=== PATIENT | male | born 1975 | race Caucasian/White ===

== ENCOUNTER 2017-10-05 00:21 | Emergency (ER) | payer OTHER ==
[2017-10-05] MEDS ORDERED: KETOROLAC TROMETHAMINE 30 MG/1 ML VIAL ONE (03:10)
[2017-10-05 04:46] LABS: URINE APPEARANCE SL CLOUDY; URINE BILIRUBIN NEGATIVE (<2.0 mg/dL); URINE COLOR YELLOW; URINE GLUCOSE (UA) NEGATIVE (NEGATIVE)
[2017-10-05 04:47] LABS: URINE BLOOD NEGATIVE (NEGATIVE); URINE KETONE NEGATIVE (NEGATIVE); URINE NITRITE NEGATIVE (NEGATIVE); URINE PROTEIN NEGATIVE (NEGATIVE)
[2017-10-05 04:48] LABS: URINE LEUK ESTERASE NEGATIVE (NEGATIVE)
[2017-10-05 04:52] LABS: HEMATOCRIT 39.4 % (35.4-49); HEMOGLOBIN 13.6 GM/dL (11.7-16.9); MCH 32.4 pg (25.7-33.7); MCHC 34.6 g/dl (32.0-35.9); MEAN CELL VOLUME 93.7 fl (80-96); PLATELET COUNT 220 K/MM3 (134-434); RBC 4.21 M/mm3 (4.00-5.60); RDW 12.9 % (11.9-15.9); WHITE BLOOD COUNT 7.1 K/mm3 (4.0-10.0)
[2017-10-05 04:53] LABS: MEAN PLT VOLUME 7.7 fl (7.5-11.1)
[2017-10-05 05:25] LABS: ALBUMIN 4.1 g/dl (3.4-5.0); ALK PHOS 56 U/L (45-117); ANION GAP 8 (8-16); BILIRUBIN,TOTAL 0.2 mg/dL (0.2-1.0); BLOOD UREA NITROGEN 12 mg/dL (7-18); CALCIUM 8.8 mg/dL (8.5-10.1); CHLORIDE 105 mmol/L (98-107); CO2 29 mmol/L (21-32); CREATININE 0.8 mg/dL (0.7-1.3); GLUCOSE,RANDOM 81 mg/dL (74-106); POTASSIUM 3.8 mmol/L (3.5-5.1); SGOT/AST 13 U/L (15-37); SGPT/ALT 14 U/L (12-78); SODIUM 142 mmol/L (136-145); TOT PROT 7.1 g/dl (6.4-8.2)
== END 2017-10-05 07:09 | disposition home or self-care (01) ==
LOC: JER 00:21
DX: R10.32 Left lower quadrant pain (principal)
CPT/HCPCS: 36415; 74176; 80053; 81003; 85025; 87086; 99281-25

== ENCOUNTER 2018-11-11 10:37 | Emergency (ER) | payer OTHER ==
[2018-11-11 10:53] VITALS: BP 118/77; PULSE 97; TEMP 98.2; BMI 22.0
--- NOTE | 2018-11-11 11:05 | PDOC ---
History of Present Illness - General Chief Complaint: Injury Stated Complaint: FALL Time Seen by Provider: 11/11/18 10:59 - History of Present Illness Initial Comments: 11/11/18 11:42 The patient is a 43 year old right hand dominant male with no significant PMH who presents for evaluation of left sided rib pain and left hand pain following a fall. The patient reports that he tripped and fell 3 days ago onto his left side. He states that he was initially evaluated at [facility] but left prior to receiving his results. He reports continued worsening pain to his left chest prompting his presentation to the ED for further evaluation. He otherwise denies head trauma, SOB, nausea, vomiting, abdominal pain, numbness, tingling, weakness, or changes with urination or bowel movements. Past History - Past Medical History Allergies/Adverse Reactions: Allergies Allergy/AdvReac Type Severity Reaction Status Date / Time No Known Allergies Allergy Verified 11/11/18 10:53 Home Medications: Ambulatory Orders Oxycodone HCl/Acetaminophen [Percocet 5-325 mg Tablet] 1 - 2 tab PO Q4H - Suicide/Smoking/Psychosocial Hx Smoking History: Current every day smoker Have you smoked in the past 12 months: Yes Number of Cigarettes Smoked Daily: 2 Information on smoking cessation initiated: No Hx Alcohol Use: No Drug/Substance Use Hx: No Review of Systems - Review of Systems Comments:: 11/11/18 11:44 Constitutional: No fevers, chills, fatigue, malaise HEENT: No Rhinorrhea, nasal congestion, visual changes Cardiovascular: No syncope, palpitations, lightheadedness Respiratory: No Cough, SOB, Hemoptysis, Gastrointestinal: No Abdominal pain, Nausea, Vomiting, Constipation, Diarrhea, Melena Genitourinary: No Dysuria, Frequency, Urgency, Hesitancy, Hematuria, Flank pain Musculoskeletal: Left Rib pain. Left hand pain. No Myalgia, arthralgia Skin: No rashes, itching, bruising, pallor Neurologic: No Headache, Dizziness, Numbness, Weakness, or Tingling Psychiatric: No Hallucinations. No SI or HI *Physical Exam - Vital Signs Last Vital Signs Temp Pulse Resp BP Pulse Ox 98.2 F 97 H 16 118/77 97 11/11/18 10:50 11/11/18 10:50 11/11/18 10:50 11/11/18 10:50 11/11/18 10:50 - Physical Exam Comments: 11/11/18 11:44 General Appearance: Nourished. No Apparent Distress HEENT: EOMI, KAILEY. No Pharyngeal Erythema, Tonsillar Exudate, Tonsillar Erythema Neck: No Cervical Lymphadenopathy Respiratory/Chest: Lungs Clear, Normal Breath Sounds. Reproducible tenderness to palpation along the left ribs. No Crackles, Rales, Rhonchi, Wheezing Cardiovascular: Regular Rhythm, Regular Rate. No Murmur, Gallops, Rubs Gastrointestinal/Abdominal: Normal Bowel Sounds, Soft. No Guarding, Rebound, Tenderness Musculoskeletal: No CVA Tenderness Extremity: Tenderness to palpation of the mid left hand with significant edema. Full ROM of the left wrist. Noted bruising in the left palm. Normal Capillary Refill Integumentary: Normal Color, Dry, Warm Neurologic: Fully Oriented, Alert, Normal Mood/Affect, Normal Response, Procedures - Splinting Splint Location: Left: Hand, Wrist Pre-Proc Neuro Vasc Exam: normal Hand-Made Type: orthoglass Splint Type: Yes: Ulnar Post-Proc Neuro Vasc Exam: normal Pedro Luis Bandage: yes, 3" Complications: No Medical Decision Making - Medical Decision Making 11/11/18 12:02 The patient is a 43 year old right hand dominant male with no significant PMH who presents for evaluation of left sided rib pain and left hand pain following a fall. Differential includes but is not limited to: Fracture, Contusion, Ligamentous injury. Given the patient's history and physical exam, we obtained plain films of the patient's hand and ribs to evaluate further as well as an ekg. Chest plain film is unremarkable as read by our radiologist. Hand plain films demonstrates a right angulated proximal 4th metacarpal fracture. We placed the patient in a ulnar gutter hand splint. We are comfortable discharging the patient home in stable condition with hand follow up. Patient and family made aware of impression and plan, return precautions discussed including but not limited to worsening pain or symptoms, fevers, or signs of infection, chest pain, respiratory distress, inability to tolerate oral intake, dehydration, syncope, or neurologic changes. The patient is to follow up with PMD and specialist as recommended within 1 week, follow up information provided and the patient will call for an appointment. The patient is to take medications as instructed for duration of time and continue with supportive care , avoid triggers and precipitants. Patient is safe for outpatient follow-up. *DC/Admit/Observation/Transfer Diagnosis at time of Disposition: Chest wall contusion Qualifiers: Encounter type: initial encounter Laterality: unspecified laterality Qualified Code(s): S20.219A - Contusion of unspecified front wall of thorax, initial encounter Fracture, metacarpal Qualifiers: Encounter type: initial encounter Metacarpal bone: unspecified metacarpal Fracture type: closed Metacarpal location: unspecified portion of metacarpal Fracture morphology: unspecified fracture morphology Qualified Code(s): S62.309A - Unspecified fracture of unspecified metacarpal bone, initial encounter for closed fracture - Discharge Dispostion Disposition: HOME Condition at time of disposition: Stable - Referrals Referrals: Baldo Ohara MD [Staff Physician] - - Patient Instructions Printed Discharge Instructions: DI for a Hand Fracture, DI for Rib Contusion Additional Instructions: 1) Please follow-up with your primary care doctor in the next 2-3 days. Please call tomorrow to schedule a follow up appointment. If you cannot follow up with your doctor within 1 week please return to the Emergency Department for any urgent issues. 2) Your Xrays show that you have a hand fracture of your left hand. We have placed you in a splint. You are to call to schedule a follow up appointment with our hand specialist Dr. Ohara in 2-3 days to discuss your ER visit and further management of your symptoms. 3) If you have any worsening of symptoms or any other concerns please return to the ER immediately. Return if worsening symptoms including fevers, headache, vomiting, visual or hearing disturbances, abdominal pain, chest pain, shortness of breath, syncope, dehydration, inability to take things by mouth/vomiting, altered mental status, or worsening concerning symptoms. 4) Please continue taking your home medications as directed. You may use tylenol and motrin at home as needed for pain. - Post Discharge Activity
[2018-11-11] MEDS ORDERED: LIDOCAINE 5% TOPICAL PATCH TP ONE (11:20)
[2018-11-11] MEDS ORDERED: METHOCARBAMOL 500 MG TABLET PO ONE (11:20)
[2018-11-11] MEDS ORDERED: IBUPROFEN 600 MG TABLET (FP) PO ONE ×2 (11:20→11:27)
--- NOTE | 2018-11-11 11:22 | PDOC ---
Attending Attestation - Resident Resident Name: Brennan Harmon - ED Attending Attestation I have performed the following: I have examined & evaluated the patient, The case was reviewed & discussed with the resident, I agree w/resident's findings & plan, Exceptions are as noted - HPI HPI: 11/11/18 11:18 43 yo m otherwise healthy presenting to the ER for evaluation of left sided chest pain and left hand pain Pt states that he was in his usual state of health until three days ago He fell, landing on his hand He struck his chest He was seen at an outside hospital where xrays were performed Pt did not wait for results He presents to the ER now due to severe pain Pt is RHD, unemployed 11/11/18 11:23 - Physicial Exam PE: 11/11/18 11:17 GENERAL: The patient is in no acute distress. HEAD: Normal EYES: PERRLA, EOMI, sclera anicteric, conjunctiva clear. ENT: Ears normal, nares patent, oropharynx clear without exudates. Moist mucous membranes. NECK: Normal range of motion, supple LUNGS: Breath sounds equal, clear to auscultation bilaterally. HEART:Regular rate and rhythm, normal S1 and S2 without murmur, rub or gallop. Chest wall tenderness to palpation No bruising noted ABDOMEN: Soft, nontender, normoactive bowel sounds. No guarding, no rebound. EXTREMITIES: Normal range of motion, no edema. NEUROLOGICAL: Cranial nerves II through XII grossly intact. Normal speech. No focal neurological deficits. MUSCULOSKELETAL: Left hand swollen, bruising noted in palm, SKIN: Bruising left palm 11/11/18 11:47 - Medical Decision Making 11/11/18 11:22 43 yo M presenting with 3 days of chest pain s/p fall/trauma Will do EKG Xrays chest and hand Pain medications EKG: NSR rate of 89 bpm, axis nml, intervals nml, no st elevation or depression , t waves prominent precordial leads CXR: no rib fractures noted Hand: left 4th finger fracture Will splint Follow up with hand *DC/Admit/Observation/Transfer Diagnosis at time of Disposition: Chest wall contusion Qualifiers: Encounter type: initial encounter Laterality: left Qualified Code(s): S20.212A - Contusion of left front wall of thorax, initial encounter Fracture, metacarpal Qualifiers: Encounter type: initial encounter Metacarpal bone: fourth Fracture type: closed Metacarpal location: neck Fracture alignment: displaced Laterality: left Qualified Code(s): S62.335A - Displaced fracture of neck of fourth metacarpal bone, left hand, initial encounter for closed fracture - Discharge Dispostion Condition at time of disposition: Stable Decision to Admit order: No - Referrals Referrals: Baldo Ohara MD [Staff Physician] - - Patient Instructions Printed Discharge Instructions: DI for a Hand Fracture, DI for Rib Contusion - Post Discharge Activity
[2018-11-11] MEDS ORDERED: LIDOCAINE 5% TOPICAL PATCH ONE (11:27)
--- NOTE | 2018-11-11 17:01 | EKG ---
Test Reason : Blood Pressure : / mmHG Vent. Rate : 089 BPM Atrial Rate : 089 BPM P-R Int : 140 ms QRS Dur : 088 ms QT Int : 348 ms P-R-T Axes : 050 043 046 degrees QTc Int : 423 ms NORMAL SINUS RHYTHM NORMAL ECG WHEN COMPARED WITH ECG OF 14-FEB-2009 22:42, QT HAS LENGTHENED Confirmed by MARILYN ROSAS MD ([id number]) on 11/11/2018 5:01:16 PM Referred By: Confirmed By:MARILYN ROSAS MD
== END 2018-11-11 13:23 | disposition home or self-care (01) ==
LOC: JER 10:37
PROC: 2W3DX1Z Immobilization of Left Lower Arm using Splint (ICD-10-PCS; principal; 2018-11-11)
DX: S62.395A Other fracture of fourth metacarpal bone, left hand, initial encounter for closed fracture (principal); S20.219A Contusion of unspecified front wall of thorax, initial encounter; W10.8XXA Fall (on) (from) other stairs and steps, initial encounter; Y93.89 Activity, other specified; Y92.038 Other place in apartment as the place of occurrence of the external cause; Y99.8 Other external cause status
CPT/HCPCS: 29515; 71046-TC-FY; 71101-TC-LT-FY; 73110-TC-LT-FY; 73130-TC-LT-FY; 93005; 93010; 99282-25